=== PATIENT | male | born 2000 | race Hispanic/Latino ===

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

== ENCOUNTER 2021-10-24 22:08 | Emergency (ER) | payer OTHER ==
[~2021-10-24] VITALS: Ht 167.6 cm; Wt 59.0 kg
== END 2021-10-25 01:27 | disposition home or self-care (01) ==
LOC: ER 22:53
DX: M25.562 Pain in left knee (principal); M79.662 Pain in left lower leg; W22.09XA Striking against other stationary object, initial encounter; V86.59XA Driver of other special all-terrain or other off-road motor vehicle injured in nontraffic accident, initial encounter; Y92.89 Other specified places as the place of occurrence of the external cause; F90.9 Attention-deficit hyperactivity disorder, unspecified type
CPT/HCPCS: 99283